=== PATIENT | female | born 1975 | race Hispanic/Latino ===

== ENCOUNTER 2016-12-03 13:32 | Emergency (ER) | payer OTHER ==
[~2016-12-03] VITALS: Ht 157.5 cm; Wt 72.6 kg
[~2016-12-03 13:32] MED LIST: BACTRIM DS TAB1 EACH PO; PYRIDIUM100 M1 PO
--- NOTE | 2016-12-03 15:29 | ED NECK/BACK PAIN COMPLAINT ---
History of Present Illness General Chief Complaint: Low Back Pain/Injury Stated Complaint: PT HURT HER BACK AT WORK Source: patient Exam Limitations: no limitations Vital Signs & Intake/Output Vital Signs & Intake/Output Vital Signs Date Time Temp Pulse Resp B/P Pulse O2 O2 Flow FiO2 Ox Delivery Rate 12/03 1338 96.8 65 16 110/73 100 Room Air Allergies Coded Allergies: No Known Allergies (06/11/16) Reconcile Medications Methylprednisolone. (Medrol) 4 MG TAB.DS.PK 1 DP PO AD back pain 6 on day 1 then reduce by one tablet daily until gone Tramadol HCl 50 MG TABLET 1 TAB PO BIDP PRN pain Triage Note: PT STATES SHE HAS HAD BACK PAIN FROM MOVING TABLES AT WORK. PT REPORT BACK PAIN IS GETTING WORSE. PT STATES SHE NEEDED HELP GETTING DRESSED YESTERDAY HER BACK HURT SO MUCH. PT HAS BEEN TAKING ALEEVE AND MOTRIN FOR PAIN WITH NO RELIEF. Triage Nurses Notes Reviewed? yes : No Patient currently breastfeeds: No HPI: this patient is a 41-year-old female who presented to the emergency department today for evaluation of back pain 10 days. The patient reported that approximately 10 days ago she was at work trying to lift a table when she felt a sharp pain in her lower back. She reported that the pain has been getting progressively worse and gets up to a 10 out of 10. The pain is sharp and radiates down the back of both of her legs into her feet. She reported occasional numbness and tingling. Movement makes the pain worse. She has been taking 800 mg of ibuprofen without any relief of her symptoms. The pain has been constant since onset. She denies any bowel or bladder incontinence. No saddle paresthesia. Patient denied any abdominal pain, urinary burning, urgency , frequency, or blood in the urine. The patient denied any chest pain, breathing, fevers, or chills. (SANTIAGO QUINTERO PA-C) Past History Travel History Traveled to [place] past 21 day No Medical History Any Pertinent Medical History? see below for history Surgical History Surgical History: none Psychosocial History What is your primary language Lao Tobacco Use: Never used ETOH Use: occasional use Illicit Drug Use: denies illicit drug use Family History Hx Contributory? No (SANTIAGO QUINTERO PA-C) Review of Systems Review of Systems Constitutional: Reports: no symptoms. Eyes: Reports: no symptoms. Ears, Nose, Throat, Mouth: Reports: no symptoms. Respiratory: Reports: no symptoms. Cardiovascular: Reports: no symptoms. Gastrointestinal/Abdominal: Reports: no symptoms. Musculoskeletal: Reports: see HPI. Skin: Reports: no symptoms. Neurological/Psychological: Reports: see HPI. All Other Systems: Reviewed and Negative (INGRID DIA,SANTIAGO) Physical Exam Physical Exam Neck: normal inspection, supple, full range of motion, normal alignment, no midline tenderness Comments: Well-developed well-nourished person in no acute distress HEENT: Normal EENT exam, head normocephalic/atraumatic PERRLA bilaterally Back: Antalgic gait. Lumbar midline tenderness. Bilateral lumbar paraspinal musculature tenderness. Positive straight leg raise bilaterally at 35. Limited range of motion on flexion and extension due to pain Cardiovascular: Regular rate and rhythm with no murmurs Respiratory: No respiratory distress. Breath sounds clear to auscultation bilaterally Abdomen: Soft, nontender and nondistended Extremity: Normal and equal pulses. Neuro: Alert oriented x3, cranial nerves II through XII grossly intact. Skin: No appreciable rash on exposed skin, skin is warm and dry. Psych: Mood and affect is normal, memory and judgment is normal. (INGRID DIA,SANTIAGO) Progress Differential Diagnosis: AAA, aortic dissection, cauda equina syn, herniated disc , myofascial strain, pyelo/UTI, sciatica, spinal cord inj, thoracic outlet syn, T/L spine injury, ureterolithiasis Plan of Care: Orders Procedure Date/time Status URINE 12/03 1413 Complete Laboratory Tests 12/03/16 1433: Urine Test NEGATIVE Diagnostic Imaging: Viewed by Me: CT Scan. Discussed w/RAD: CT Scan. Radiology Impression: PATIENT: CAIO FARFAN PRESENT AGE: 41 PATIENT ACCOUNT NO: [id number] : 76 LOCATION: [facility] ORDERING PHYSICIAN: SANTIAGO QUINTERO PA-C SERVICE DATE: 12/03/16254 EXAM TYPE: CAT - CT LUMB SPINE WO IV CONTRAST EXAMINATION: CT LUMBAR SPINE WITHOUT CONTRAST CLINICAL INFORMATION: Pain. Possible disc bulge. No history of trauma. COMPARISON: None TECHNIQUE: Helical non-contrast CT images were obtained through the lumbar spine and 1.25 and 2.5 mm axial reconstructions were reviewed along with sagittal and coronal MPRs. DLP: 473.97 mGy-cm FINDINGS: There is normal alignment. Normal vertebral body heights. Minor decrease in the intervertebral disc space noted at L4-L5 and L5-S1 levels. Minor sclerotic changes and osteophytes inferior bilateral SI joints. SPINAL LEVELS: T12-L1: Normal. L1-L2: Normal. L2-L3: Normal. L3-L4: Small endplate osteophyte formations. No evidence of disc herniation. No gross facet arthropathy. No evidence of stenosis. L4-L5: Small anterior endplate osteophyte formation. Limbus vertebra noted anterior inferior to the L4 inferior endplate compatible with normal variation. There is broad-based annular bulge with right foraminal encroachment. Mild right foraminal stenosis. Possible mild impression upon the right exiting L4 nerve root. No gross impingement. Mild indentation of the thecal sac without any significant stenosis. L5-S1: No evidence of disc herniation. There is no evidence of stenosis. Visualized soft tissues appear grossly unremarkable. IMPRESSION: 1. L4-L5 broad-based annular bulge with mild indentation of the thecal sac and mild right foraminal stenosis. No significant spinal stenosis. 2. Small endplate osteophytes. 3. No acute osseous abnormality. DICTATED BY: HINA MITCHELL MD DATE/TIME DICTATED:12/03/161524 CADDY PACKER:BETTE DATE/ TIME TRANSCRIBED:12/03/161524 CONFIDENTIAL, DO NOT COPY WITHOUT APPROPRIATE AUTHORIZATION. <Electronically signed in Other Vendor System> SIGNED BY: HINA MITCHELL MD 12/03/16 1548 Comments: 12/03/2016 4:04:16 PM: At the patient's bedside reevaluation. She reported complete relief of her symptoms with tremors all and Solu-Medrol. Disc bulges seen on lumbar CT scan. This patient will be given neurosurgical follow-up. (INGRID DIA,SANTIAGO) Departure Departure Disposition: HOME OR SELF CARE Condition: Stable Clinical Impression Primary Impression: L4-L5 disc bulge Referrals: MARIO ALBERTO KIMBROUGH MD (PCP/Family) KELSY ROGEL MD Additional Instructions: PLEASE TAKE MEDICATION FOR PAIN PRESCRIBED. TAKE MEDROL DOSE PACK PRESCRIBED. REST. GENTLE STRETCHING. FOLLOW-UP WITH THE SPECIALIST WHOSE INFORMATION HAS BEEN PROVIDED TO YOU FOR FURTHER EVALUATION. NO STRENOUS ACTIVITY OR HEAVY LIFTING. RETURN FOR ANY WORSENING SYMPTOMS OR CONCERNS. Departure Forms: Customer Survey General Discharge Information Prescriptions: Current Visit Scripts Tramadol HCl 1 TAB PO BIDP PRN pain #15 TAB Methylprednisolone. (Medrol) 1 DP PO AD #1 DP 6 on day 1 then reduce by one tablet daily until gone (INGRID DIA,SANTIAGO) PA/RECONCILIATION SPECIALIST Co-Sign Statement Statement: ED Attending supervision documentation- [] I saw and evaluated the patient. I have also reviewed all the pertinent lab results and diagnostic results. I agree with the findings and the plan of care as documented in the PA's/RECONCILIATION SPECIALIST's documentation. [X] I have reviewed the ED Record and agree with the PA's/RECONCILIATION SPECIALIST's documentation. [] Additions or exceptions (if any) to the PAs/RECONCILIATION SPECIALIST's note and plan are summarized below: [] (FALLON CAPUTO,CHRISTIAN)
--- NOTE | 2016-12-03 15:48 | CT SCAN REPORT ---
EXAMINATION: CT LUMBAR SPINE WITHOUT CONTRAST CLINICAL INFORMATION: Pain. Possible disc bulge. No history of trauma. COMPARISON: None TECHNIQUE: Helical non-contrast CT images were obtained through the lumbar spine and 1.25 and 2.5 mm axial reconstructions were reviewed along with sagittal and coronal MPRs. DLP: 473.97 mGy-cm FINDINGS: There is normal alignment. Normal vertebral body heights. Minor decrease in the intervertebral disc space noted at L4-L5 and L5-S1 levels. Minor sclerotic changes and osteophytes inferior bilateral SI joints. SPINAL LEVELS: T12-L1: Normal. L1-L2: Normal. L2-L3: Normal. L3-L4: Small endplate osteophyte formations. No evidence of disc herniation. No gross facet arthropathy. No evidence of stenosis. L4-L5: Small anterior endplate osteophyte formation. Limbus vertebra noted anterior inferior to the L4 inferior endplate compatible with normal variation. There is broad-based annular bulge with right foraminal encroachment. Mild right foraminal stenosis. Possible mild impression upon the right exiting L4 nerve root. No gross impingement. Mild indentation of the thecal sac without any significant stenosis. L5-S1: No evidence of disc herniation. There is no evidence of stenosis. Visualized soft tissues appear grossly unremarkable. IMPRESSION: 1. L4-L5 broad-based annular bulge with mild indentation of the thecal sac and mild right foraminal stenosis. No significant spinal stenosis. 2. Small endplate osteophytes. 3. No acute osseous abnormality.
[2016-12-03] MEDS ORDERED: MEDROL4 M2 PO (16:00)
[2016-12-03] MEDS ORDERED: TRAMADOL HCL50 M1 PO (16:00)
[2016-12-03 16:08] VITALS: BP 110/58
== END 2016-12-03 16:15 ==
LOC: ERH 13:32
DX: M51.26 Other intervertebral disc displacement, lumbar region (principal); X50.0XXA Overexertion from strenuous movement or load, initial encounter; Y93.89 Activity, other specified; Y92.9 Unspecified place or not applicable
CPT/HCPCS: 81025; 96372; J2930